=== PATIENT | male | born 1955 | race Caucasian/White ===

== ENCOUNTER 2017-07-14 06:47 | Inpatient (IN) | payer OTHER ==
[~2017-07-14 06:47] MED LIST: DIAZEPAM 5 MG TAB PO; DIPHENHYDRAMINE 50 MG CAP PO; FAMOTIDINE 20 MG TAB PO; LIDOCAINE 1% (MDV) 20 ML INJ; SOD CHLORIDE 0.45% 1,000 ML IV; SOD CHLORIDE 0.9% 1,500 ML
[2017-07-14 08:12] LABS: ADD MAN DIFF? NO
[2017-07-14 08:16] LABS: WHITE BLOOD COUNT 4.5 10^3/ul (4.8-10.8)
[2017-07-14 08:16] LABS: BASOPHILS % 0.9 % (0.0-2.0); EOSINOPHILS # 0.3 10^3/ul (0.0-0.5); EOSINOPHILS % 6.4 % (0.0-7.0); HEMATOCRIT 45.1 % (42.0-52.0); HEMOGLOBIN 15.2 g/dl (14.0-18.0); LYMPHOCYTES # 1.2 10^3/ul (0.8-2.9); LYMPHOCYTES % 26.2 % (15.0-51.0); MEAN CORPUSCULAR HEMOGLOBIN 29.8 pg (29.0-33.0); MEAN CORPUSCULAR HGB CONC 33.7 g/dl (32.0-37.0); MEAN CORPUSCULAR VOLUME 88.4 fl (82.0-101.0); MEAN PLATELET VOLUME 11.9 fl (7.4-10.4); MONOCYTE # 0.4 10^3/ul (0.3-0.9); MONOCYTES % 9.1 % (0.0-11.0); NEUTROPHIL # 2.6 10^3/ul (1.6-7.5); PLATELET COUNT 133 10^3/UL (140-415); RED CELL DISTRIBUTION WIDTH 13.1 % (11.5-14.5)
[2017-07-14 08:38] LABS: ANION GAP 16 (8-16); CARBON DIOXIDE 27 mmol/L (21-31); CHLORIDE 105 mmol/L (97-110); GLUCOSE 87 mg/dl (70-220)
[2017-07-14 08:39] LABS: CHOL/HDL RATIO 3.7 RATIO; HDL CHOLESTEROL 58 mg/dl (30-78); LDL CHOLESTEROL,CALCULATED 139 mg/dl; TRIGLYCERIDES 97 mg/dl (0-149)
[2017-07-14 08:39] LABS: CHOLESTEROL 216 mg/dl (100-200)
[2017-07-14 08:44] LABS: INR 0.98; PARTIAL THROMBOPLASTIN TIME 27.3 Sec (25.0-35.0); PROTIME 13.1 Sec (11.9-14.9)
[2017-07-14] MEDS ORDERED: LIDOCAINE 1% (MDV) 20 ML INJ (08:48)
[2017-07-14] MEDS ORDERED: IODIXANOL LOCM 100 ML BTL (08:48)
[2017-07-14] MEDS ORDERED: MIDAZOLAM 1 MG/ML 2 ML INJ (08:48)
[2017-07-14 08:49] LABS: BLOOD UREA NITROGEN 20 mg/dl (7-20); CALCIUM 8.8 mg/dl (8.4-10.2); CREATININE 0.75 mg/dl (0.61-1.24); POTASSIUM 5.1 mmol/L (3.5-5.1); SODIUM 143 mmol/L (135-144)
[2017-07-14] MEDS ORDERED: FENTAnyl 50 MCG/ML VIAL (08:49)
[2017-07-14] MEDS ORDERED: NITROGLYCERIN (IC) 100 MCG/ML INJ (10:53)
[2017-07-14] MEDS: SOD CHLORIDE 0.9% 1,000 ML IV (11:09)
[2017-07-14] MEDS ORDERED: TICAGRELOR 90 MG TABLET (11:12)
[2017-07-14] MEDS ORDERED: ASPIRIN 325 MG TAB (11:12)
[2017-07-14] MEDS ORDERED: OXYCODONE/ACETAMINOPHEN (5/325) TAB PO (11:30)
[2017-07-14] MEDS ORDERED: DIAZEPAM 2 MG TAB PO (11:30)
[2017-07-14] MEDS ORDERED: ACETAMINOPHEN 325 MG TAB PO (11:30)
[2017-07-14] MEDS ORDERED: ONDANSETRON 4 MG INJ IV (11:30)
[2017-07-14] MEDS ORDERED: ZOLPIDEM 5 MG TAB PO (11:30)
[2017-07-14] MEDS ORDERED: hydrALAzine 20 MG INJ IV (12:30)
[2017-07-14] MEDS: morphine 2 MG INJ IV (14:50)
[2017-07-14] MEDS: BENAZEPRIL 10 MG TAB PO (20:29)
[2017-07-14] MEDS: TICAGRELOR 90 MG TABLET PO (20:30)
[2017-07-14 22:40] LABS: CHOLESTEROL 205 mg/dl (100-200)
[2017-07-14 22:40] LABS: CHOL/HDL RATIO 3.9 RATIO; HDL CHOLESTEROL 52 mg/dl (30-78); LDL CHOLESTEROL,CALCULATED 142 mg/dl; TRIGLYCERIDES 56 mg/dl (0-149)
[2017-07-15 07:39] LABS: ADD MAN DIFF? NO
[2017-07-15 07:44] LABS: WHITE BLOOD COUNT 5.5 10^3/ul (4.8-10.8)
[2017-07-15 07:44] LABS: BASOPHILS % 0.5 % (0.0-2.0); EOSINOPHILS # 0.1 10^3/ul (0.0-0.5); EOSINOPHILS % 2.2 % (0.0-7.0); LYMPHOCYTES # 0.9 10^3/ul (0.8-2.9); MEAN CORPUSCULAR HEMOGLOBIN 29.9 pg (29.0-33.0); MEAN CORPUSCULAR HGB CONC 34.1 g/dl (32.0-37.0); MEAN CORPUSCULAR VOLUME 87.4 fl (82.0-101.0); MEAN PLATELET VOLUME 12.1 fl (7.4-10.4); MONOCYTE # 0.3 10^3/ul (0.3-0.9); MONOCYTES % 6.2 % (0.0-11.0); NEUTROPHIL # 4.1 10^3/ul (1.6-7.5); NEUTROPHILS % 74.9 % (39.0-77.0); PLATELET COUNT 119 10^3/UL (140-415); RED BLOOD COUNT 4.69 10^6/ul (4.70-6.10); RED CELL DISTRIBUTION WIDTH 12.9 % (11.5-14.5)
[2017-07-15 08:00] LABS: ANION GAP 12 (8-16); BLOOD UREA NITROGEN 13 mg/dl (7-20); CALCIUM 8.5 mg/dl (8.4-10.2); CARBON DIOXIDE 26 mmol/L (21-31); CHLORIDE 104 mmol/L (97-110); CREATINE KINASE 37 IU/L (23-200); CREATININE 0.76 mg/dl (0.61-1.24); GLUCOSE 142 mg/dl (70-220); SODIUM 138 mmol/L (135-144)
[2017-07-15 08:10] LABS: CK INDEX 2.4; TROPONIN-I 0.068 ng/ml (0.000-0.120)
[2017-07-15 08:14] LABS: CK-MB 0.88 ng/ml (0.0-2.4)
[2017-07-15] MEDS: ASPIRIN (EC) 81 MG TAB PO (08:31)
[2017-07-15] MEDS: BENAZEPRIL 10 MG TAB PO (08:32)
[2017-07-15] MEDS: METOPROLOL (XL) 25 MG TAB PO (08:33)
[2017-07-15] MEDS: TICAGRELOR 90 MG TABLET PO (08:37)
[2017-07-15] MEDS ORDERED: BENAZEPRIL 5 MG TAB PO (09:00)
[2017-07-15 10:33] LABS: MAGNESIUM 1.7 mg/dl (1.7-2.5)
[2017-07-15] MEDS: AL HYDROX/MG HYDROX/SIMETH 30 ML CUP PO (13:23)
[2017-07-18] MEDS ORDERED: PROPOFOL 0 ML (22:25)
[2017-07-18] MEDS ORDERED: SUCCINYLCHOLINE CHLORIDE 100 MG/5 ML SYG IV (22:25)
[2017-07-18] MEDS ORDERED: morphine SULFATE/PF (10 MG/10 ML) INJ (22:25)
[2017-07-18] MEDS ORDERED: OXYTOCIN 10 UNIT INJ (22:25)
[2017-07-18] MEDS ORDERED: FENTAnyl 50 MCG/ML VIAL (22:25)
[2017-07-18] MEDS ORDERED: PROPOFOL 20 ML (22:25)
== END 2017-07-15 16:31 | disposition home or self-care (01) | DRG 247 ==
LOC: SDS 06:47 → REC 11:14 → SDS 19:24 → TEL 17:57 → REC 19:24 → TEL 17:57 → SDS 17:56 → TEL 17:56
PROC: 027034Z Dilation of Coronary Artery, One Artery with Drug-eluting Intraluminal Device, Percutaneous Approach (ICD-10-PCS; principal; 2017-07-14 08:38)
PROC: 4A023N7 Measurement of Cardiac Sampling and Pressure, Left Heart, Percutaneous Approach (ICD-10-PCS; 2017-07-14 08:38)
PROC: B2031ZZ Plain Radiography of Multiple Coronary Artery Bypass Grafts using Low Osmolar Contrast (ICD-10-PCS; 2017-07-14 08:38)
PROC: B2081ZZ Plain Radiography of Left Internal Mammary Bypass Graft using Low Osmolar Contrast (ICD-10-PCS; 2017-07-14 08:38)
DX: I25.10 Atherosclerotic heart disease of native coronary artery without angina pectoris (principal); I25.810 Atherosclerosis of coronary artery bypass graft(s) without angina pectoris; I10 Essential (primary) hypertension; E78.5 Hyperlipidemia, unspecified; Z95.1 Presence of aortocoronary bypass graft; I49.3 Ventricular premature depolarization; I42.9 Cardiomyopathy, unspecified
CPT/HCPCS: 71045; 80048; 80061; 82550; 82553; 83735; 84484; 85025; 85610; 85730; 93005; 93459